=== PATIENT | male | born 1985 | race Caucasian/White ===

== ENCOUNTER 2019-09-28 17:29 | Emergency (ER) | payer SELFPAY ==
[~2019-09-28] VITALS: Ht 175.3 cm; Wt 136.4 kg
[2019-09-28 17:34] VITALS: BP 155/89; TEMP 98.1
[2019-09-28 19:00] VITALS: PULSE 84
== END 2019-09-28 19:00 | disposition home or self-care (01) ==
LOC: COL.ER 17:29
DX: S30.0XXA Contusion of lower back and pelvis, initial encounter (principal); W00.0XXA Fall on same level due to ice and snow, initial encounter